=== PATIENT | male | born 1930 | race Caucasian/White ===

== ENCOUNTER 2018-03-04 00:20 | Observation (INO) | payer MEDICARE, BC ==
--- NOTE | 2018-03-04 00:52 | ED ---
General Adult HPI - General Chief complaint: Urogenital Stated complaint: UTI Time Seen by Provider: 03/04/18 00:51 Source: patient, EMS Mode of arrival: EMS Limitations: no limitations - History of Present Illness Initial comments: Duane is an 87-year-old male who presents to the ED via EMS from an outside hospital for further evaluation of hematuria, urinary tract infection and acute kidney injury. 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 He does admit to participating in some heavy physical activity including digging and moving a woodpile. He reports that after doing this he had the urge to urinate when he when he had difficulty urinating. When he was finally able to urinate he passed a very large dark blood clots. Patient states that this had never happened to him before. He states that he passed multiple blood clots and was able to into his bladder. He called his daughter who advised him to go to the ER. He sought care at an outside ER where urinalysis revealed gross hematuria, significant white blood cells as well as nitrites. He is also noted have a creatinine of 1.4 with no history of kidney disease. She was given IV fluids, Levaquin and transferred here for further evaluation by urology. Patient reports that aside from feeling hungry because he had supper he has no complaints. He does report that he continues to have dark blood and clots when he urinates but no dysuria or urinary frequency. Patient does state that he had a procedure for enlarged prostate greater than 30 years ago by a urologist in [facility]. He has subsequently followed with Dr. Jeter urology here. - Related Data Allergies Allergy/AdvReac Type Severity Reaction Status Date / Time atenolol Allergy Rash/Hives Verified 03/04/18 00:36 Influenza Virus Vaccines Allergy Rash/Hives Verified 03/04/18 00:36 Penicillins Allergy Rash/Hives Verified 03/04/18 00:36 Review of Systems ROS Statement: Those systems with pertinent positive or pertinent negative responses have been documented in the HPI. ROS Other: All systems not noted in ROS Statement are negative. Past Medical History Past Medical History: Heart Failure, Hyperlipidemia, Hypertension, Prostate Disorder Additional Past Medical History / Comment(s): vacular disease, cardiac disease, History of Any Multi-Drug Resistant Organisms: None Reported Additional Past Surgical History / Comment(s): left side neurostimulator, coronary angioplasty and graft Past Psychological History: No Psychological Hx Reported Smoking Status: Never smoker Past Alcohol Use History: None Reported Past Drug Use History: None Reported General Exam Limitations: no limitations General appearance: alert, in no apparent distress Head exam: Present: atraumatic, normocephalic Eye exam: Present: normal appearance, PERRL ENT exam: Present: normal exam Neck exam: Present: normal inspection Respiratory exam: Absent: respiratory distress Cardiovascular Exam: Present: regular rate GI/Abdominal exam: Present: soft. Absent: distended Rectal exam: Present: deferred Extremities exam: Present: normal inspection Back exam: Present: normal inspection Neurological exam: Present: alert, oriented X3 Psychiatric exam: Present: normal affect, normal mood Skin exam: Present: warm, dry. Absent: pallor Course Vital Signs 03/04/18 03/04/18 00:20 02:11 Temperature 97 F L Pulse Rate 60 72 Respiratory 18 18 Rate Blood Pressure 185/86 177/84 O2 Sat by Pulse 98 97 Oximetry Medical Decision Making - Medical Decision Making Patient care was discussed with Dr. Zepeda the transferring physician, this is an elderly gentleman who lives alone who developed gross hematuria, was noted to have a urinary tract infection and acute kidney injury. Made to transfer him to our facility to be evaluated by urology. Patient stable upon arrival. No complaints. Repeat CBC, BMP, urinalysis and urine culture were ordered. The patient did receive Levaquin prior to transfer however decision was made to obtain a urine culture regardless THE stable hemoglobin, creatinine improving with IV fluids urinalysis with persistent gross hematuria Patient care was discussed with urology who recommends patient be admitted to medicine under observation with consult to urology. Patient care was discussed with Dr. Acosta who accepts the patient to observation with consult to urology. - Lab Data Result diagrams: 03/04/18 02:04 03/04/18 02:04 Lab Results 03/04/18 03/04/18 03/04/18 Range/Units 02:04 02:04 02:04 WBC 4.9 (3.8-10.6) k/uL RBC 4.30 (4.30-5.90) m/uL Hgb 13.0 (13.0-17.5) gm/dL Hct 39.8 (39.0-53.0) % MCV 92.7 (80.0-100.0) fL MCH 30.2 (25.0-35.0) pg MCHC 32.5 (31.0-37.0) g/dL RDW 13.9 (11.5-15.5) % Plt Count 166 (150-450) k/uL Neutrophils % 60 % Lymphocytes % 23 % Monocytes % 11 % Eosinophils % 2 % Basophils % 1 % Neutrophils # 3.0 (1.3-7.7) k/uL Lymphocytes # 1.1 (1.0-4.8) k/uL Monocytes # 0.5 (0-1.0) k/uL Eosinophils # 0.1 (0-0.7) k/uL Basophils # 0.0 (0-0.2) k/uL Sodium 137 (137-145) mmol/L Potassium 3.8 (3.5-5.1) mmol/L Chloride 106 (98-107) mmol/L Carbon Dioxide 25 (22-30) mmol/L Anion Gap 6 mmol/L BUN 20 (9-20) mg/dL Creatinine 1.20 (0.66-1.25) mg/dL Est GFR (CKD-EPI)AfAm 63 (>60 ml/min/1.73 sqM) Est GFR (CKD-EPI)NonAf 54 (>60 ml/min/1.73 sqM) Glucose 93 (74-99) mg/dL Calcium 8.9 (8.4-10.2) mg/dL Urine Color Urine Appearance (Clear) Urine RBC (0-5) /hpf Urine WBC (0-5) /hpf Blood Type A Positive Blood Type Confirm Blood Type Recheck CABO Indicated Antibody Screen NEGATIVE Spec Expiration Date 03/07/2018230303/04/18 03/04/18 Range/Units 02:10 02:43 WBC (3.8-10.6) k/uL RBC (4.30-5.90) m/uL Hgb (13.0-17.5) gm/dL Hct (39.0-53.0) % MCV (80.0-100.0) fL MCH (25.0-35.0) pg MCHC (31.0-37.0) g/dL RDW (11.5-15.5) % Plt Count (150-450) k/uL Neutrophils % % Lymphocytes % % Monocytes % % Eosinophils % % Basophils % % Neutrophils # (1.3-7.7) k/uL Lymphocytes # (1.0-4.8) k/uL Monocytes # (0-1.0) k/uL Eosinophils # (0-0.7) k/uL Basophils # (0-0.2) k/uL Sodium (137-145) mmol/L Potassium (3.5-5.1) mmol/L Chloride (98-107) mmol/L Carbon Dioxide (22-30) mmol/L Anion Gap mmol/L BUN (9-20) mg/dL Creatinine (0.66-1.25) mg/dL Est GFR (CKD-EPI)AfAm (>60 ml/min/1.73 sqM) Est GFR (CKD-EPI)NonAf (>60 ml/min/1.73 sqM) Glucose (74-99) mg/dL Calcium (8.4-10.2) mg/dL Urine Color Dark Red Urine Appearance Bloody (Clear) Urine RBC >182 H (0-5) /hpf Urine WBC >182 H (0-5) /hpf Blood Type Blood Type Confirm A Positive Blood Type Recheck Antibody Screen Spec Expiration Date Disposition Clinical Impression: UTI (urinary tract infection), Gross hematuria, Acute kidney injury Disposition: ADMITTED IP TO THIS [facility] Referrals: Rios Pierre MD [Primary Care Provider] - 1-2 days Decision Time: 03:24
[2018-03-04 02:18] LABS: Basophils % (A) 1 %; Eosinophils # (A) 0.1 k/uL (0-0.7); Eosinophils % (A) 2 %; HCT 39.8 % (39.0-53.0); Lymphocytes # (A) 1.1 k/uL (1.0-4.8); Lymphocytes % (A) 23 %; MCH 30.2 pg (25.0-35.0); MCHC 32.5 g/dL (31.0-37.0); MCV 92.7 fL (80.0-100.0); Mean Platelet Volume 7.6; Monocytes # (A) 0.5 k/uL (0-1.0); Monocytes % (A) 11 %; Neutrophils % (A) 60 %; Platelet Count 166 k/uL (150-450); RDW 13.9 % (11.5-15.5); WBC 4.9 k/uL (3.8-10.6)
[2018-03-04 02:21] LABS: Calcium 8.9 mg/dL (8.4-10.2)
[2018-03-04 02:23] LABS: RBC,Urine >182 /hpf (0-5); WBC,Urine >182 /hpf (0-5)
[2018-03-04 02:24] LABS: Appearance,Urine Bloody (Clear); Color,Urine Dark Red
[2018-03-04 02:25] LABS: Potassium 3.8 mmol/L (3.5-5.1)
[2018-03-04] MEDS ORDERED: NALOXONE 0.4 MG/ML 1 ML VIAL IV PRN (03:10)
[2018-03-04 04:20] VITALS: BMI 32.4
[2018-03-04] MEDS: SODIUM CHLORIDE 0.9% 1,000 ML IV SCH ×3 (04:48→19:37)
[2018-03-04] MEDS ORDERED: DOCUSATE 100 MG CAP PO PRN (12:10)
--- NOTE | 2018-03-04 13:17 | HP ---
HISTORY AND PHYSICAL CHIEF COMPLAINT: An 87-year-old with UTI and hematuria. HISTORY OF PRESENT ILLNESS: This 87-year-old white female came in from outside hospital due to severe hematuria, urinary tract infection, acute kidney injury. 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 He had urgency to urinary when he was doing this, difficulty to urinate, passed a large blood clot out of his penis, multiple blood clots from his urine at which time he came to the ER, He had gross hematuria. Significant white cells, nitrates. Creatinine 1.4. No history of kidney disease. He was given fluids, Levaquin, transferred here. He has got enlarged prostate 30 years ago. Seen a urologist in [place]. ALLERGIES: ATENOLOL, INFLUENZA, PENICILLIN. 14 POINT REVIEW OF SYSTEMS: Negative except for as mentioned in HPI. PAST MEDICAL HISTORY: Heart failure, dyslipidemia, hypertension, prostate disorder, cardiac disease, outside neurostimulator, coronary angioplasty and graft. SOCIAL HISTORY: Nonsmoker. No alcohol. No illicit drugs. PHYSICAL EXAM: Temp 97, pulse 60 to 73, respiratory 12 to 16 to18, blood pressure is 170 to 180s/80s, O2 is 97% - 98% on room air. CARDIOVASCULAR: S1, S2. LUNGS: Clear. GI: Soft. HEMATOLOGY: Negative Homans. PSYCH: Fair mood and affect. NEUROLOGIC: Alert and oriented x3. : No suprapubic tenderness. Follow his gross hematuria. Hemoglobin is 13, white count 4.9, sodium 137, potassium 3.8, BUN 20, creatinine 1.2. Red cells are greater than 182 in the urine, white cells are greater than 182 in the urine. CONCLUSION: 1. Since the urinary tract infection, gross hematuria, acute kidney injury. 2. History of heart disease. 3. Hypertension acceleration. Monitor electrolytes. Monitor signs of bleeding. Await for Infectious Disease and Urology. He will have a urine culture. Await recommendation. For further orders, please see chart. MMODL / IJN: [id number] /
[2018-03-04 14:01] LABS: Basophils % (A) 1 %; Eosinophils # (A) 0.1 k/uL (0-0.7); Eosinophils % (A) 2 %; HCT 38.9 % (39.0-53.0); HGB 12.7 gm/dL (13.0-17.5); Lymphocytes # (A) 0.8 k/uL (1.0-4.8); Lymphocytes % (A) 22 %; MCH 30.5 pg (25.0-35.0); MCHC 32.8 g/dL (31.0-37.0); MCV 93.1 fL (80.0-100.0); Mean Platelet Volume 7.6; Monocytes # (A) 0.3 k/uL (0-1.0); Monocytes % (A) 9 %; Neutrophils # (A) 2.2 k/uL (1.3-7.7); Neutrophils % (A) 63 %; Platelet Count 169 k/uL (150-450); RBC 4.17 m/uL (4.30-5.90); RDW 13.9 % (11.5-15.5); WBC 3.5 k/uL (3.8-10.6)
[2018-03-04] MEDS: cefTRIAXone IN SWFI 1,000 MG/10 ML SYRINGE IVP SCH (16:44)
[2018-03-04] MEDS ORDERED: ATORVASTATIN 10 MG TAB PO SCH (18:30)
--- NOTE | 2018-03-04 20:37 | P.GSCN ---
History of Present Illness Consult date: 03/04/18 Reason for Consult: Hematuria Requesting physician: Maico Acosta History of present illness: He is an 87-year-old male with a history of BPH. He was previously treated by Dr. Mccormick, and he underwent a TURP in the past. He has taken Proscar for several years, and states that it has helped his voiding significantly. He states that his PSA level was previously elevated to approximately 6, but it has normalized since he began taking Proscar. On examination, the prostate is enlarged but smooth. Bladder emptying is complete, and urinalysis is negative. When I last saw him in 2016, I suggested he continue to take Proscar and follow up as needed in the future. Yesterday, he was working outside, doing some shoveling and lifting, and he felt an urge to void. He passed 2 large clots, and subsequently experienced gross hematuria. He was evaluated at [facility] in [place]. A computed tomography scan of the abdomen and pelvis without contrast showed a 2 cm right lower pole renal cyst, but no other urologic abnormalities were noted. He was subsequently transferred to [facility] for admission. Review of Systems - Constitutional Denies chills, Denies fever - Gastrointestinal Denies nausea, Denies vomiting - Genitourinary Reports hematuria, Reports nocturia, Denies dysuria Past Medical History Past Medical History: Heart Failure, Hyperlipidemia, Hypertension, Prostate Disorder Additional Past Medical History / Comment(s): vacular disease, cardiac disease, History of Any Multi-Drug Resistant Organisms: None Reported Additional Past Surgical History / Comment(s): left side neurostimulator, coronary angioplasty and graft Past Psychological History: No Psychological Hx Reported Smoking Status: Never smoker Past Alcohol Use History: None Reported Past Drug Use History: None Reported Medications and Allergies Home Medications Medication Instructions Recorded Confirmed Type Aspirin 325 mg PO DAILY 03/04/18 03/04/18 History Clopidogrel [Plavix] 75 mg PO DAILY 03/04/18 03/04/18 History Docusate [Colace] 100 mg PO DAILY PRN 03/04/18 03/04/18 History Finasteride [Proscar] 5 mg PO DAILY 03/04/18 03/04/18 History Furosemide [Lasix] 20 mg PO DAILY 03/04/18 03/04/18 History Isosorbide Mononitrate ER [Imdur] 30 mg PO DAILY 03/04/18 03/04/18 History Metoprolol Tartrate 25 mg PO BID 03/04/18 03/04/18 History Polyethylene Glycol 3350 [Miralax] 17 gm PO DAILY 03/04/18 03/04/18 History Simvastatin [Zocor] 20 mg PO PC-SUPPER 03/04/18 03/04/18 History Allergies Allergy/AdvReac Type Severity Reaction Status Date / Time atenolol Allergy Rash/Hives Verified 03/04/18 08:44 Influenza Virus Vaccines Allergy Rash/Hives Verified 03/04/18 08:44 Penicillins Allergy Rash/Hives Verified 03/04/18 08:44 Surgical - Exam Vital Signs Temp Pulse Resp BP Pulse Ox 97 F L 60 18 185/86 98 03/04/18 00:20 03/04/18 00:20 03/04/18 00:20 03/04/18 00:20 03/04/18 00:20 - General well developed, well nourished, no distress - Respiratory normal respiratory effort - Abdomen Abdomen: soft, non tender, no guarding, no rigid, no rebound Hernia: none - Genitourinary normal penis with no external lesions, testicles non-tender - Rectum Rectum: normal sphincter tone, no masses, other (Prostate moderately enlarged but smooth) - Psychiatric oriented to time, oriented to person, oriented to place, speech is normal, memory intact Results - Labs 03/04/18 13:20 03/04/18 02:04 Abnormal Lab Results - Last 24 Hours (Table) 03/04/18 03/04/18 Range/Units 02:10 13:20 WBC 3.5 L (3.8-10.6) k/uL RBC 4.17 L (4.30-5.90) m/uL Hgb 12.7 L (13.0-17.5) gm/dL Hct 38.9 L (39.0-53.0) % Lymphocytes # 0.8 L (1.0-4.8) k/uL Urine RBC >182 H (0-5) /hpf Urine WBC >182 H (0-5) /hpf Microbiology - Last 24 Hours (Table) 03/04/18 02:10 Urine Culture - Preliminary Urine,Voided Diabetes panel 03/04/18 Range/Units 02:04 Sodium 137 (137-145) mmol/L Potassium 3.8 (3.5-5.1) mmol/L Chloride 106 (98-107) mmol/L Carbon Dioxide 25 (22-30) mmol/L BUN 20 (9-20) mg/dL Creatinine 1.20 (0.66-1.25) mg/dL Glucose 93 (74-99) mg/dL Calcium 8.9 (8.4-10.2) mg/dL Calcium panel 03/04/18 Range/Units 02:04 Calcium 8.9 (8.4-10.2) mg/dL Pituitary panel 03/04/18 Range/Units 02:04 Sodium 137 (137-145) mmol/L Potassium 3.8 (3.5-5.1) mmol/L Chloride 106 (98-107) mmol/L Carbon Dioxide 25 (22-30) mmol/L BUN 20 (9-20) mg/dL Creatinine 1.20 (0.66-1.25) mg/dL Glucose 93 (74-99) mg/dL Calcium 8.9 (8.4-10.2) mg/dL Adrenal panel 03/04/18 Range/Units 02:04 Sodium 137 (137-145) mmol/L Potassium 3.8 (3.5-5.1) mmol/L Chloride 106 (98-107) mmol/L Carbon Dioxide 25 (22-30) mmol/L BUN 20 (9-20) mg/dL Creatinine 1.20 (0.66-1.25) mg/dL Glucose 93 (74-99) mg/dL Calcium 8.9 (8.4-10.2) mg/dL - Imaging CT scan - abdomen: report reviewed Assessment and Plan (1) Gross hematuria Current Visit: Yes Status: Acute Code(s): R31.0 - GROSS HEMATURIA SNOMED Code(s): 660506310 Plan: In summary, Mr. Schofield is experiencing gross painless hematuria. The computed tomography scan showed no abnormalities. I suspect a lower urinary tract source of the hematuria. Urinalysis is suggestive of a possible infection. A urine culture was sent, and he is currently receiving Rocephin. The hematuria may be due to BPH, but intravesical malignancy must be excluded. I intend to reevaluate Mr. Schofield tomorrow morning. I will suggest that he undergo cystoscopy during this hospitalization if the hematuria persists, but if the hematuria subsides he may be discharged home and undergo office cystoscopy and the upcoming week. Time with Patient: Greater than 30
[2018-03-04] MEDS: METOPROLOL TARTRATE 25 MG TAB PO SCH (21:07)
[2018-03-04 21:26] LABS: Basophils % (A) 1 %; Eosinophils # (A) 0.1 k/uL (0-0.7); Eosinophils % (A) 2 %; HCT 40.5 % (39.0-53.0); HGB 13.6 gm/dL (13.0-17.5); Lymphocytes # (A) 1.1 k/uL (1.0-4.8); Lymphocytes % (A) 26 %; MCH 31.3 pg (25.0-35.0); MCHC 33.5 g/dL (31.0-37.0); MCV 93.5 fL (80.0-100.0); Mean Platelet Volume 7.6; Monocytes # (A) 0.4 k/uL (0-1.0); Monocytes % (A) 9 %; Neutrophils # (A) 2.4 k/uL (1.3-7.7); Neutrophils % (A) 59 %; Platelet Count 165 k/uL (150-450); RBC 4.33 m/uL (4.30-5.90); RDW 13.7 % (11.5-15.5); WBC 4.1 k/uL (3.8-10.6)
--- NOTE | 2018-03-05 01:41 | CONS ---
CONSULTATION DATE OF SERVICE: 03/04/2018 REASON FOR CONSULTATION: Urinary tract infection. HISTORY OF PRESENT ILLNESS: The patient is an 87-year-old male with a past medical history significant for benign prostate hypertrophy. The patient is status post prostatectomy and has been on Proscar. The patient has been in usual state of health until yesterday morning. Apparently the patient has been doing some more hard work outside including lifting and shoveling stuff around. The patient did notice that he had an urge to void and subsequently passed 2 large clots in the urine and since then the patient did have gross hematuria. The patient denies significant burning on urination or any suprapubic or flank pain. No nausea, no vomiting. With these symptoms, the patient did went to [facility]. The patient did have CT abdominal and pelvis completed without any contrast, which did show small cyst in the kidney, but no evidence of any stones. He did have mildly positive . He has mostly hematuria on urinalysis with some pyuria with concern for possible infection. Infectious Disease was consulted for further recommendation. The patient has been afebrile since he has been admitted to the hospital and his white count has been normal though urine did show more than 1-2 WBC. REVIEW OF SYSTEMS: Constitutional: Positive for weakness. Denies any high-grade fever. Eyes: No complaint. ENT no complaint. Respiratory no complaint. Cardiovascular no complaint. Genitourinary as per HPI. GI system: No complaint. Musculoskeletal no complaint. Integumentary: No complaint. Psychological no complaint. Endocrine no complaint. Neurologic: No complaint. PAST MEDICAL HISTORY: Significant for hypertension, hyperlipidemia, benign prostatic hypertrophy, and heart failure. PAST SURGICAL HISTORY: Left-sided neuro transmitter stimulator placement, coronary angioplasty with grafting. SOCIAL HISTORY: Denies smoking, drinking or drug use. FAMILY HISTORY: No pertinent findings noticed. ALLERGIES: PENICILLIN. He mentioned that he has got so much of penicillin that it may not work for him. Denies having any rash. Clinically doubt true penicillin allergy. ALSO ALLERGIES TO ATENOLOL AND INFLUENZA VACCINE. MEDICATIONS: Currently include the patient is on Lipitor, Colace, Proscar, Lasix, Imdur, Lopressor, Narcan and IV fluids, Plavix and aspirin has been put hold. EXAMINATION: Blood pressure is 121/60 with a pulse of 52, temperature 97.9. He is 97% on room air. General description is an elderly male lying in bed in no distress. No tachypnea or accessory muscles of respiration use. HEENT: Shows scleral icterus. Oral mucous membranes dry. No pharyngeal erythema or thrush. Neck trachea central. No thyromegaly. Lungs unlabored breathing. Clear to auscultation anteriorly. No wheeze or crackles. Heart S1, S2. Regular rate and rhythm. ABDOMEN: Soft, no tenderness. No guarding or rigidity. EXTREMITIES: No edema of the feet. Skin examination: No rash or mass palpable. Neurological: Patient is awake, alert, oriented times three. Mood and affect normal. LABS: Hemoglobin 13.6, white count 4.1 with a BUN of 20, creatinine 1.20. Urine with more than 1-2 WBCs. Cultures currently pending. DIAGNOSTIC IMPRESSION: Patient admitted to the hospital with gross hematuria with a question of possible noninfectious, however underlying urinary tract infection not entirely excluded in view of significant pyuria associated with it. The patient has been evaluated by urology and a cystoscopy has been recommended. PLAN: 1. The patient will be empirically started on Rocephin 1 g daily. 2. IV fluids. 3. Depending upon the clinical response as well as cultures we will adjust the medication further if needed. Thank you for this consultation. We will follow this patient along with you. MMODL / IJN: [id number] /
[2018-03-05] MEDS: SODIUM CHLORIDE 0.9% 1,000 ML IV SCH ×2 (05:21→12:34)
[2018-03-05 06:04] LABS: Basophils % (A) 1 %; Eosinophils # (A) 0.1 k/uL (0-0.7); Eosinophils % (A) 2 %; HCT 39.2 % (39.0-53.0); HGB 13.1 gm/dL (13.0-17.5); Lymphocytes # (A) 0.8 k/uL (1.0-4.8); Lymphocytes % (A) 22 %; MCH 31.4 pg (25.0-35.0); MCHC 33.5 g/dL (31.0-37.0); MCV 93.9 fL (80.0-100.0); Mean Platelet Volume 7.4; Monocytes # (A) 0.4 k/uL (0-1.0); Monocytes % (A) 10 %; Neutrophils # (A) 2.3 k/uL (1.3-7.7); Neutrophils % (A) 62 %; Platelet Count 167 k/uL (150-450); RBC 4.18 m/uL (4.30-5.90); RDW 13.9 % (11.5-15.5); WBC 3.8 k/uL (3.8-10.6)
[2018-03-05 06:15] VITALS: RESP 16; TEMP 97.8
[2018-03-05 06:19] LABS: Albumin 3.1 g/dL (3.5-5.0); Calcium 8.6 mg/dL (8.4-10.2); Potassium 4.1 mmol/L (3.5-5.1); Total Protein 5.8 g/dL (6.3-8.2)
[2018-03-05] MEDS ORDERED: FUROSEMIDE 20 MG TAB PO SCH (09:00)
[2018-03-05] MEDS ORDERED: ASPIRIN 325 MG TAB PO SCH (09:00)
[2018-03-05] MEDS ORDERED: FINASTERIDE 5 MG TAB PO SCH (09:00)
[2018-03-05] MEDS ORDERED: CLOPIDOGREL 75 MG TAB PO SCH (09:00)
[2018-03-05] MEDS ORDERED: ISOSORBIDE MONONITRATE ER 30 MG TAB.ER.24H PO SCH (09:00)
[2018-03-05] MEDS: METOPROLOL TARTRATE 25 MG TAB PO SCH (09:10)
[2018-03-05] MEDS: cefTRIAXone IN SWFI 1,000 MG/10 ML SYRINGE IVP SCH (09:11)
[2018-03-05] MEDS ORDERED: ACETAMINOPHEN TAB 325 MG TAB PO PRN (10:32)
[2018-03-05 10:48] VITALS: BP 151/65; PULSE 52
[2018-03-05 13:12] LABS: Basophils % (A) 1 %; Eosinophils # (A) 0.1 k/uL (0-0.7); Eosinophils % (A) 2 %; HCT 39.8 % (39.0-53.0); HGB 13.1 gm/dL (13.0-17.5); Lymphocytes # (A) 0.9 k/uL (1.0-4.8); Lymphocytes % (A) 23 %; MCH 30.8 pg (25.0-35.0); MCHC 32.8 g/dL (31.0-37.0); MCV 93.9 fL (80.0-100.0); Mean Platelet Volume 7.8; Monocytes # (A) 0.4 k/uL (0-1.0); Monocytes % (A) 9 %; Neutrophils # (A) 2.5 k/uL (1.3-7.7); Neutrophils % (A) 63 %; Platelet Count 195 k/uL (150-450); RBC 4.23 m/uL (4.30-5.90); RDW 13.9 % (11.5-15.5)
--- NOTE | 2018-03-05 14:33 | PN ---
PROGRESS NOTE DATE OF SERVICE: 03/05/2018 REASON FOR FOLLOWUP: Urinary tract infection. INTERVAL HISTORY: The patient is afebrile. The patient's hematuria has resolved. Did have a concentrated urine. The patient denies any burning or frequency. Denies any chest pain or shortness of breath. No abdominal pain. No diarrhea. EXAMINATION: Blood pressure 117/82 with a pulse of 95 temperature 97.8. He is 95% on room air. General description is an elderly male up in the chair in no distress. LABS: White count normal at 4.0 with a BUN of 18, creatinine 1.10. Urine culture currently pending. DIAGNOSTIC IMPRESSION AND PLAN: Patient admitted to the hospital with gross hematuria with concern for possible component of a urinary tract infection for which the patient is currently on Rocephin. Will continue while waiting for the culture to finalize. on hold per Urology. Continue supportive care. MMODL / IJN: [id number] /
--- NOTE | 2018-03-09 11:52 | P.PN ---
Progress Note - Text Progress Note Date: 03/05/18 Mr. Schofield is voiding without difficulty. The hematuria is improved. His hemoglobin level is stable at 13.1. I had a lengthy discussion with the patient and his daughter. I have recommended that he be discharged home on oral antibiotics. I have advised him to hold his aspirin and Plavix. I have also suggested that he avoid any straining or strenuous activity, and that he drink plenty of fluids. He will be contacted by my office on Wednesday, to be given an appointment to undergo office cystoscopy on 03/09/2018.
== END 2018-03-05 14:00 | disposition home or self-care (01) ==
LOC: EC 00:20 → 5MS5E 03:11
PROVIDERS: ADMIT Family Medicine; ATTEND Family Medicine
DX: N39.0 Urinary tract infection, site not specified (principal); N17.9 Acute kidney failure, unspecified; R31.0 Gross hematuria; N40.0 Benign prostatic hyperplasia without lower urinary tract symptoms; I11.0 Hypertensive heart disease with heart failure; I50.9 Heart failure, unspecified; E78.5 Hyperlipidemia, unspecified; I51.9 Heart disease, unspecified; N28.1 Cyst of kidney, acquired; Z79.82 Long term (current) use of aspirin; Z79.02 Long term (current) use of antithrombotics/antiplatelets; Z79.899 Other long term (current) drug therapy; Z95.5 Presence of coronary angioplasty implant and graft; Z96.9 Presence of functional implant, unspecified; Z88.0 Allergy status to penicillin; Z88.7 Allergy status to serum and vaccine; Z88.8 Allergy status to other drugs, medicaments and biological substances
CPT/HCPCS: 99285 ×2; 96376; 96361 ×2; 96374; 36415; 86900; 86901; 80053; 80048; 85025 ×2; 86850; 81001; 87086; G0378 ×2; S0138; J0696 ×2

== ENCOUNTER 2018-04-25 12:14 | Inpatient (IN) | payer MEDICARE, BC ==
[2018-04-25 12:46] LABS: Basophils % (A) 0 %; Eosinophils # (A) 0.1 k/uL (0-0.7); Eosinophils % (A) 1 %; HCT 42.8 % (39.0-53.0); HGB 14.5 gm/dL (13.0-17.5); Lymphocytes # (A) 0.7 k/uL (1.0-4.8); Lymphocytes % (A) 7 %; MCH 31.6 pg (25.0-35.0); Mean Platelet Volume 7.8; Monocytes # (A) 0.4 k/uL (0-1.0); Monocytes % (A) 5 %; Neutrophils # (A) 7.7 k/uL (1.3-7.7); Neutrophils % (A) 85 %; Platelet Count 169 k/uL (150-450); RDW 13.4 % (11.5-15.5); WBC 9.1 k/uL (3.8-10.6)
[2018-04-25 12:57] LABS: Albumin 3.5 g/dL (3.5-5.0); Calcium 8.6 mg/dL (8.4-10.2); INR 1.1 (<1.2); Magnesium 2.2 mg/dL (1.6-2.3); Partial Thromboplastin Time 23.8 sec (22.0-30.0); Potassium 3.4 mmol/L (3.5-5.1); Prothrombin Time 10.6 sec (9.0-12.0); Total Protein 6.8 g/dL (6.3-8.2)
--- NOTE | 2018-04-25 13:20 | XR ---
EXAMINATION TYPE: XR chest 2V DATE OF EXAM: 04/25/2018 COMPARISON: 04/25/2018 TECHNIQUE: PA and lateral views submitted. HISTORY: Difficulty breathing FINDINGS: Arthropathy of the shoulders. Reduced inspiration with bilateral lower lobe consolidation. No pneumot horax. Atherosclerotic change aorta. Hypertrophic and degenerative change of the spine. Appears to be a spinal stimulator catheter or device correlate clinically. IMPRESSION: 1. Bilateral lower lobe infiltrate or atelectasis.
[2018-04-25 13:36] LABS: Troponin I 0.199 ng/mL (0.000-0.034)
--- NOTE | 2018-04-25 14:36 | ED ---
General Adult HPI - General Chief complaint: Weakness Stated complaint: sob/chest pain Time Seen by Provider: 04/25/18 12:17 Source: patient, EMS, RN notes reviewed, old records reviewed Mode of arrival: EMS Limitations: physical limitation - History of Present Illness Initial comments: This is an 87-year-old male except in transfer. Patient was transferred patient for evaluation regarding 9 STEMI. Patient is not complaining of any chest pain currently. Patient does have medical history of high blood pressure high cholesterol heart failure - Related Data Home Medications Medication Instructions Recorded Confirmed Finasteride [Proscar] 5 mg PO DAILY 03/04/18 04/25/18 Isosorbide Mononitrate ER [Imdur] 30 mg PO DAILY 03/04/18 04/25/18 Metoprolol Tartrate 25 mg PO BID 03/04/18 04/25/18 Polyethylene Glycol 3350 [Miralax] 17 gm PO DAILY 03/04/18 04/25/18 Bisacodyl 5 mg PO DAILY PRN 04/25/18 04/25/18 Ferrous Sulfate [Iron (65 MG 325 mg PO DAILY 04/25/18 04/25/18 Elemental)] Previous Rx's Medication Instructions Recorded Acetaminophen Tab [Tylenol] 650 mg PO Q6HR PRN tab 04/28/18 Aspirin 81 mg PO DAILY chew 04/28/18 Atorvastatin [Lipitor] 40 mg PO DAILY tab 04/28/18 Levofloxacin [Levaquin] 750 mg PO DAILY #5 tab 04/28/18 Allergies Allergy/AdvReac Type Severity Reaction Status Date / Time atenolol Allergy Rash/Hives Verified 04/25/18 12:46 Influenza Virus Vaccines Allergy Rash/Hives Verified 04/25/18 12:46 Penicillins Allergy Rash/Hives Verified 04/25/18 12:46 ferrous sulfate AdvReac Nausea & Verified 04/25/18 12:46 Vomiting & Diarrhea Review of Systems ROS Statement: Those systems with pertinent positive or pertinent negative responses have been documented in the HPI. ROS Other: All systems not noted in ROS Statement are negative. Past Medical History Past Medical History: Heart Failure, Hyperlipidemia, Hypertension, Prostate Disorder Additional Past Medical History / Comment(s): vacular disease, cardiac disease, History of Any Multi-Drug Resistant Organisms: None Reported Additional Past Surgical History / Comment(s): left side neurostimulator, coronary angioplasty and graft Past Psychological History: No Psychological Hx Reported Smoking Status: Never smoker Past Alcohol Use History: None Reported Past Drug Use History: None Reported - Past Family History Mother Additional Family Medical History / Comment(s): in 1940-during child Father Family Medical History: Myocardial Infarction ([place]) Additional Family Medical History / Comment(s): age 86 from [place] General Exam Limitations: physical limitation General appearance: alert, in no apparent distress Head exam: Present: atraumatic, normocephalic, normal inspection Eye exam: Present: normal appearance, PERRL, EOMI. Absent: scleral icterus, conjunctival injection, periorbital swelling ENT exam: Present: normal exam, mucous membranes moist Neck exam: Present: normal inspection. Absent: tenderness, meningismus, lymphadenopathy Respiratory exam: Present: normal lung sounds bilaterally. Absent: respiratory distress, wheezes, rales, rhonchi, stridor Cardiovascular Exam: Present: regular rate, normal rhythm, normal heart sounds. Absent: systolic murmur, diastolic murmur, rubs, gallop, clicks GI/Abdominal exam: Present: soft, normal bowel sounds. Absent: distended, tenderness, guarding, rebound, rigid Extremities exam: Present: normal inspection, full ROM, normal capillary refill. Absent: tenderness, pedal edema, joint swelling, calf tenderness Back exam: Present: normal inspection Neurological exam: Present: alert, oriented X3, CN II-XII intact Psychiatric exam: Present: normal affect, normal mood Skin exam: Present: warm, dry, intact, normal color. Absent: rash Course Vital Signs 04/25/18 04/25/18 04/25/18 12:24 13:26 13:37 Temperature 98.5 F Pulse Rate 83 62 Respiratory 18 18 20 Rate Blood Pressure 142/73 131/69 O2 Sat by Pulse 99 98 Oximetry 04/25/18 04/25/18 16:00 17:02 Temperature 97.9 F Pulse Rate 75 Respiratory 20 18 Rate Blood Pressure 171/90 O2 Sat by Pulse 97 Oximetry - Reevaluation(s) Reevaluation #1: Transfer paperwork is reviewed EKG Findings - EKG Comments: EKG Findings:: EKG shows normal sinus rhythm rate of 65, WV 178, QRS 136, QTC 538 Medical Decision Making - Medical Decision Making 87 male the ER for evaluation chest pain non-STEMI CHF. Patient be admitted for cardiology evaluation and rehydration secondary to rhabdomyolysis well. - Lab Data Result diagrams: 04/28/18 08:25 04/28/18 08:25 Lab Results 04/25/18 04/25/18 04/25/18 Range/Units 12:32 12:32 12:32 WBC 9.1 (3.8-10.6) k/uL RBC 4.60 (4.30-5.90) m/uL Hgb 14.5 (13.0-17.5) gm/dL Hct 42.8 (39.0-53.0) % MCV 93.0 (80.0-100.0) fL MCH 31.6 (25.0-35.0) pg MCHC 34.0 (31.0-37.0) g/dL RDW 13.4 (11.5-15.5) % Plt Count 169 (150-450) k/uL Neutrophils % 85 % Lymphocytes % 7 % Monocytes % 5 % Eosinophils % 1 % Basophils % 0 % Neutrophils # 7.7 (1.3-7.7) k/uL Lymphocytes # 0.7 L (1.0-4.8) k/uL Monocytes # 0.4 (0-1.0) k/uL Eosinophils # 0.1 (0-0.7) k/uL Basophils # 0.0 (0-0.2) k/uL PT (9.0-12.0) sec INR (<1.2) APTT (22.0-30.0) sec Sodium 137 (137-145) mmol/L Potassium 3.4 L (3.5-5.1) mmol/L Chloride 104 (98-107) mmol/L Carbon Dioxide 23 (22-30) mmol/L Anion Gap 10 mmol/L BUN 37 H (9-20) mg/dL Creatinine 1.52 H (0.66-1.25) mg/dL Est GFR (CKD-EPI)AfAm 47 (>60 ml/min/1.73 sqM) Est GFR (CKD-EPI)NonAf 41 (>60 ml/min/1.73 sqM) Glucose 114 H (74-99) mg/dL Calcium 8.6 (8.4-10.2) mg/dL Magnesium 2.2 (1.6-2.3) mg/dL Total Bilirubin 3.0 H (0.2-1.3) mg/dL AST 248 H (17-59) U/L ALT 88 H (21-72) U/L Alkaline Phosphatase 75 (38-126) U/L Total Creatine Kinase 5328 H* (55-170) U/L CK-MB (CK-2) 7.0 H (0.0-2.4) ng/mL CK-MB (CK-2) Rel Index Troponin I 0.199 H* (0.000-0.034) ng/mL NT-Pro-B Natriuret Pep pg/mL Total Protein 6.8 (6.3-8.2) g/dL Albumin 3.5 (3.5-5.0) g/dL 04/25/18 04/25/18 Range/Units 12:32 12:32 WBC (3.8-10.6) k/uL RBC (4.30-5.90) m/uL Hgb (13.0-17.5) gm/dL Hct (39.0-53.0) % MCV (80.0-100.0) fL MCH (25.0-35.0) pg MCHC (31.0-37.0) g/dL RDW (11.5-15.5) % Plt Count (150-450) k/uL Neutrophils % % Lymphocytes % % Monocytes % % Eosinophils % % Basophils % % Neutrophils # (1.3-7.7) k/uL Lymphocytes # (1.0-4.8) k/uL Monocytes # (0-1.0) k/uL Eosinophils # (0-0.7) k/uL Basophils # (0-0.2) k/uL PT 10.6 (9.0-12.0) sec INR 1.1 (<1.2) APTT 23.8 (22.0-30.0) sec Sodium (137-145) mmol/L Potassium (3.5-5.1) mmol/L Chloride (98-107) mmol/L Carbon Dioxide (22-30) mmol/L Anion Gap mmol/L BUN (9-20) mg/dL Creatinine (0.66-1.25) mg/dL Est GFR (CKD-EPI)AfAm (>60 ml/min/1.73 sqM) Est GFR (CKD-EPI)NonAf (>60 ml/min/1.73 sqM) Glucose (74-99) mg/dL Calcium (8.4-10.2) mg/dL Magnesium (1.6-2.3) mg/dL Total Bilirubin (0.2-1.3) mg/dL AST (17-59) U/L ALT (21-72) U/L Alkaline Phosphatase (38-126) U/L Total Creatine Kinase (55-170) U/L CK-MB (CK-2) (0.0-2.4) ng/mL CK-MB (CK-2) Rel Index Troponin I (0.000-0.034) ng/mL NT-Pro-B Natriuret Pep 1760 pg/mL Total Protein (6.3-8.2) g/dL Albumin (3.5-5.0) g/dL Critical Care Time Critical Care Time: Yes Total Critical Care Time: 31 Disposition Clinical Impression: NSTEMI (non-ST elevated myocardial infarction), Rhabdomyolysis Disposition: ADMITTED IP TO THIS HOSP Condition: Serious Is patient prescribed a controlled substance at d/c from ED?: No
[2018-04-25] MEDS ORDERED: SODIUM CHLORIDE 0.9% 500 ML IV ONE (16:28)
[2018-04-25] MEDS ORDERED: SODIUM CHLORIDE 0.9% 1,000 ML IV ONE (16:28)
[2018-04-25] MEDS ORDERED: SODIUM CHLORIDE 0.9% 1,000 ML IV SCH (16:30)
[2018-04-25] MEDS ORDERED: BISACODYL 5 MG TABLET.DR PO PRN (17:17)
[2018-04-25] MEDS ORDERED: ACETAMINOPHEN TAB 325 MG TAB PO PRN (17:19)
[2018-04-25] MEDS ORDERED: CALCIUM CARBONATE 500 MG CHEWABLE PO PRN (17:19)
[2018-04-25] MEDS ORDERED: ONDANSETRON 4 MG/2 ML VIAL IVP PRN (17:19)
[2018-04-25] MEDS ORDERED: LACTATED RINGERS 1,000 ML IV SCH (17:30)
[2018-04-25] MEDS ORDERED: ATORVASTATIN 10 MG TAB PO SCH (18:30)
[2018-04-25] MEDS: NITROGLYCERIN SL TABS 0.4 MG TAB SUBLINGUAL PRN ×2 (18:50→18:55)
[2018-04-25] MEDS ORDERED: HEPARIN SODIUM,PORCINE 5,000 UNIT/ML 1 ML VIAL IV PRN ×2 (20:13→20:42)
[2018-04-25] MEDS ORDERED: HEPARIN SODIUM,PORCINE 10,000 UNIT/ML 1 ML VIAL IV ONE (20:13)
[2018-04-25] MEDS ORDERED: HEPARIN SOD,PORK IN 0.45% NACL 25,000 UNIT in 0.45% NACL 1 500ML.BAG IV SCH (20:15)
[2018-04-25] MEDS ORDERED: HEPARIN SODIUM,PORCINE 5,000 UNIT/ML 1 ML VIAL IV ONE (20:42)
[2018-04-25 20:52] LABS: Creatine Kinase MB 6.1 ng/mL (0.0-2.4)
[2018-04-25] MEDS ORDERED: MELATONIN 3 MG TABLET PO PRN (21:00)
[2018-04-25 21:04] LABS: Basophils % (A) 0 %; Eosinophils % (A) 0 %; HCT 42.9 % (39.0-53.0); HGB 14.4 gm/dL (13.0-17.5); Lymphocytes # (A) 0.6 k/uL (1.0-4.8); Lymphocytes % (A) 7 %; MCH 31.5 pg (25.0-35.0); MCHC 33.6 g/dL (31.0-37.0); MCV 93.6 fL (80.0-100.0); Mean Platelet Volume 8.7; Monocytes # (A) 0.4 k/uL (0-1.0); Monocytes % (A) 5 %; Neutrophils # (A) 7.5 k/uL (1.3-7.7); Neutrophils % (A) 86 %; Platelet Count 170 k/uL (150-450); RBC 4.58 m/uL (4.30-5.90); RDW 13.4 % (11.5-15.5); WBC 8.7 k/uL (3.8-10.6)
[2018-04-25] MEDS: ATORVASTATIN 40 MG TAB PO SCH (21:09)
[2018-04-25] MEDS: METOPROLOL TARTRATE 25 MG TAB PO SCH (21:10)
[2018-04-25] MEDS: NITROGLYCERIN OINT 1 INCH/GM PACKET TOPICAL SCH (21:10)
[2018-04-25 21:11] LABS: Troponin I 0.155 ng/mL (0.000-0.034)
[2018-04-25] MEDS: guaiFENesin-DM 100-10MG/5ML 10 ML CUP PO PRN (21:12)
[2018-04-25 21:13] LABS: INR 1.1 (<1.2); Partial Thromboplastin Time 23.5 sec (22.0-30.0); Prothrombin Time 10.9 sec (9.0-12.0)
[2018-04-25] MEDS: HEPARIN SOD,PORK IN 0.45% NACL 25,000 UNIT in 0.45% NACL 1 500ML.BAG IV SCH (21:34)
[2018-04-25] MEDS: LACTATED RINGERS 1,000 ML IV SCH (21:34)
[2018-04-25] MEDS ORDERED: LEVOFLOXACIN 750MG-D5W PMX 750 MG in DEXTROSE/WATER 1 150ML.BAG IVPB SCH (22:00)
--- NOTE | 2018-04-25 22:58 | HP ---
HISTORY AND PHYSICAL DATE OF ADMISSION: 04/25/2018 PRESENTING COMPLAINT: Cough, sputum. HISTORY OF PRESENTING COMPLAINT: This is a very pleasant 87-year-old patient who follows with Dr. Pierre. Chronic stable medical conditions include coronary artery disease with stent in 2011, being followed by Dr. Agnes Tucker, hypertension, hyperlipidemia. At baseline patient uses a quad cane. Lives by himself. For the last about 5 days patient has been having increasing sputum, bringing up quite a bit, yellow-green in color. The patient was feeling tired and rundown. Every time he coughs he gets pain in the left anterior chest wall. Patient was getting so tired and rundown he decided to go down to [facility] earlier today. There patient's troponins were found to be 0.2. CPK was 2610 and patient was transferred down here. Earlier patient was put on IV heparin and nitro paste. Patient's daughter and niece are at the bedside. Patient's chest pain does not radiate to the neck or arm and is primarily related to coughing. Patient does feel tired and rundown. Denies any obvious fever or chills. REVIEW OF SYSTEMS: CONSTITUTIONAL: Weak and tired. HEENT: Left lazy eye from . RESPIRATORY: As above. CARDIOVASCULAR: Left anterior chest wall pain. Patient also has some edema in the lower extremities. GASTROINTESTINAL: None. GENITOURINARY: BPH symptoms. DERMATOLOGICAL: None. HEMATOLOGICAL: None. LYMPHATICS: None. PSYCHIATRY: Mainly forgetful. NEUROLOGICAL: Uses a quad cane. PAST MEDICAL HISTORY: 1. Congestive heart failure. 2. Hyperlipidemia. 3. Hypertension. 4. BPH. 5. Coronary artery disease. 6. Chronic low back pain from arthritis. PAST SURGICAL HISTORY: 1. Left-sided neurotransmitter. 2. Coronary angioplasty and graft. SOCIAL HISTORY: Used to work in a factory. No smoking. No alcohol. He is a . FAMILY HISTORY: Coronary artery disease. HOME MEDICATIONS: 1. Aspirin 162.5 mg a day. 2. Zocor 20 mg with supper. 3. Proscar 5 mg a day. 4. MiraLAX 17 grams p.o. daily. 5. Metoprolol 25 mg b.i.d. 6. Colace 100 mg daily p.r.n. 7. Dulcolax 5 mg daily p.r.n. 8. Lasix 20 mg p.o. daily. 9. Imdur ER 30 mg daily. 10.Iron 325 p.o. daily. ALLERGIES: 1. ATENOLOL. 2. INFLUENZA VIRUS VACCINE. 3. PENICILLIN. 4. FERROUS SULFATE. PHYSICAL EXAMINATION: VITAL SIGNS ON PRESENTATION: Temperature 98.5, pulse 83, respiration 18, blood pressure 142/73, pulse 99% on 2 L. GENERAL APPEARANCE: Well built, BMI 38.3. Lying in bed, tired-appearing. EYES: Left eye is lazy; otherwise, pupils are equal. HEENT: External appearance of nose and ears normal. Oral cavity dry. Decreased hearing. NECK: JVD not raised. Mass not palpable. RESPIRATORY: Effort normal. LUNGS: Diminished breath sounds. Questionable left basal crackles. CARDIOVASCULAR: First and second sounds normal. Minimal edema. ABDOMEN: Soft, nontender. Liver and spleen not palpable. LYMPHATIC: No lymph node palpable in neck or axillae. PSYCHIATRY: Alert and oriented x3. Mood and affect normal. NEUROLOGICAL: Pupils equal. Cranial nerves grossly intact. Power and sensation grossly intact. MUSCULOSKELETAL: Evidence of osteoarthritis, especially the hands and knees. INVESTIGATIONS: White count 9.1, hemoglobin 14.5, potassium 3.4, BUN 37, creatinine 1.52. Patient's BUN and creatinine were 18 and 1.1 on 03/05/2018. CPK 5328, troponin I 0.199. Chest x-ray film, personally reviewed by me, shows some basilar infiltrates. EKG tracing, personally reviewed by me, shows non-specific findings. ASSESSMENT: 1. Bilateral pneumonia; suspect gram-negative organism causing pleurisy-like symptoms responsible for his chest pain. Patient also has been bringing up productive sputum. 2. Acute renal failure, probably from decreased oral intake. Suspect prerenal. Creatinine has gone from 1.1 to 1.52 in a matter of a few days. 3. Coronary artery disease with prior history of stent and bypass. 4. Chronic congestive heart failure; ejection fraction not known. 5. Hyperlipidemia. 6. Essential hypertension. 7. Chronic left lazy eye. 8. Primary osteoarthritis. 9. Acute rhabdomyolysis in the setting of renal failure, not too significant. 10.Troponin leak. Doubt acute coronary syndrome, but still possible. 11.Benign prostatic hypertrophy. PLAN: At this point patient will be gently rehydrated. Home medications are reviewed. Patient will be put on IV ceftriaxone. Sputum is being sent off for Gram stain and culture. Any renal-offensive drugs will be held off, including Lasix. Will repeat electrolytes in the morning. Will also order a 2-D echocardiogram. Consultation is made to Cardiology. Care was discussed in detail with the patient and the 2 daughters at the bedside. CARLOS / DIRKN: [id number] /
[2018-04-26 01:12] LABS: Creatine Kinase MB 4.6 ng/mL (0.0-2.4)
[2018-04-26 01:18] LABS: Troponin I 0.13 ng/mL (0.000-0.034)
[2018-04-26 04:46] LABS: Basophils % (A) 0 %; Eosinophils % (A) 0 %; HCT 41.9 % (39.0-53.0); HGB 13.4 gm/dL (13.0-17.5); Lymphocytes # (A) 0.6 k/uL (1.0-4.8); Lymphocytes % (A) 8 %; MCH 30.5 pg (25.0-35.0); MCHC 32.1 g/dL (31.0-37.0); Mean Platelet Volume 7.4; Monocytes # (A) 0.5 k/uL (0-1.0); Monocytes % (A) 6 %; Neutrophils % (A) 83 %; Platelet Count 166 k/uL (150-450); RBC 4.41 m/uL (4.30-5.90); RDW 13.6 % (11.5-15.5); WBC 8.5 k/uL (3.8-10.6)
[2018-04-26 04:47] LABS: Calcium 8.6 mg/dL (8.4-10.2); Potassium 3.3 mmol/L (3.5-5.1)
[2018-04-26] MEDS: ASPIRIN 81 MG PO SCH (07:56)
[2018-04-26] MEDS: FINASTERIDE 5 MG TAB PO SCH (07:56)
[2018-04-26] MEDS: POLYETHYLENE GLYCOL 3350 17 GM POWD.PACK PO SCH (07:56)
[2018-04-26] MEDS: METOPROLOL TARTRATE 25 MG TAB PO SCH ×2 (07:56→19:55)
[2018-04-26] MEDS: ISOSORBIDE MONONITRATE ER 30 MG TAB.ER.24H PO SCH (08:01)
[2018-04-26] MEDS: NITROGLYCERIN OINT 1 INCH/GM PACKET TOPICAL SCH ×2 (08:01→19:55)
[2018-04-26] MEDS: ATORVASTATIN 40 MG TAB PO SCH (08:02)
[2018-04-26] MEDS ORDERED: ASPIRIN 325 MG TAB PO SCH (09:00)
--- NOTE | 2018-04-26 13:21 | P.CRDCN ---
History of Present Illness Consult date: 04/26/18 Requesting physician: Calixto Mendez Consult reason: chest pain Chief complaint: Chest pain ,productive cough, fatigue History of present illness: This is an 87-year-old patient with known history of coronary artery disease and prior PCI, hypertension, hyperlipidemia, presented to the hospital mainly with symptoms of malaise and fatigue, he has been having productive cough of yellow to green sputum, mild chills. According to the patient whenever he takes a deep cough he gets pain in his chest, he came to the emergency room for further evaluation. Chest x-ray on arrival here showed bilateral lower lobe infiltrate or atelectasis. EKG shows normal sinus rhythm with a right bundle branch block pattern and nonspecific ST-T wave changes. Blood pressure 130/70 with a heart rate in the 60s, 98% on 2 L of oxygen. White blood cell count 8.5 , hemoglobin 13.4, platelet count 166. Sodium 135, potassium 3.3, BUN 35, creatinine 1.4. Troponins 0.19, 0.15, 0.13. BNP level 1760. Patient is currently on aspirin 81 mg daily, Lipitor 40 mg daily, IV heparin, and her 30 mg daily, metoprolol, and Nitropaste. Currently not having any chest pain. Continues to have productive cough. Past Medical History Past Medical History: Heart Failure, Hyperlipidemia, Hypertension, Prostate Disorder Additional Past Medical History / Comment(s): vacular disease, cardiac disease, History of Any Multi-Drug Resistant Organisms: None Reported Additional Past Surgical History / Comment(s): left side neurostimulator, coronary angioplasty and graft Past Anesthesia/Blood Transfusion Reactions: No Reported Reaction Past Psychological History: No Psychological Hx Reported Smoking Status: Never smoker Past Alcohol Use History: None Reported Past Drug Use History: None Reported - Past Family History Mother Additional Family Medical History / Comment(s): in 1940-during child Father Family Medical History: Myocardial Infarction ([place]) Additional Family Medical History / Comment(s): age 86 from [place] Medications and Allergies Home Medications Medication Instructions Recorded Confirmed Type Aspirin 162.5 mg PO DAILY 03/04/18 04/25/18 History Docusate [Colace] 100 mg PO DAILY PRN 03/04/18 04/25/18 History Finasteride [Proscar] 5 mg PO DAILY 03/04/18 04/25/18 History Isosorbide Mononitrate ER [Imdur] 30 mg PO DAILY 03/04/18 04/25/18 History Metoprolol Tartrate 25 mg PO BID 03/04/18 04/25/18 History Polyethylene Glycol 3350 [Miralax] 17 gm PO DAILY 03/04/18 04/25/18 History Simvastatin [Zocor] 20 mg PO PC-SUPPER 03/04/18 04/25/18 History Bisacodyl 5 mg PO DAILY PRN 04/25/18 04/25/18 History Ferrous Sulfate [Feosol] 325 mg PO DAILY 04/25/18 04/25/18 History Furosemide [Lasix] 20 mg PO DAILY 04/25/18 04/25/18 History Allergies Allergy/AdvReac Type Severity Reaction Status Date / Time atenolol Allergy Rash/Hives Verified 04/25/18 12:46 Influenza Virus Vaccines Allergy Rash/Hives Verified 04/25/18 12:46 Penicillins Allergy Rash/Hives Verified 04/25/18 12:46 ferrous sulfate AdvReac Nausea & Verified 04/25/18 12:46 Vomiting & Diarrhea Physical Exam Vitals: Vital Signs Temp Pulse Pulse Resp BP BP Pulse Ox 04/26/18 11:21 63 16 04/26/18 11:00 63 16 125/75 92 L 04/26/18 08:00 65 18 04/26/18 07:51 97.4 F L 65 18 124/63 95 04/26/18 03:57 74 18 04/26/18 03:56 97.6 F 74 18 131/66 95 04/26/18 00:00 98.1 F 83 18 134/70 98 04/25/18 20:00 98.3 F 83 18 137/72 96 04/25/18 19:03 16 98/52 94 L 04/25/18 18:15 95 16 139/90 94 L 04/25/18 17:02 97.9 F 75 18 171/90 97 04/25/18 16:00 20 04/25/18 13:37 62 20 131/69 98 04/25/18 13:26 18 04/25/18 12:24 98.5 F 83 18 142/73 99 Intake and Output 04/25/18 04/26/18 04/26/18 22:59 06:59 14:59 Intake Total 837.667 Balance 837.667 Intake: Intake, IV Titration 837.667 Amount Heparin Sod,Pork in 0.45% 312.667 NaCl 25,000 unit In 0.45 % NaCl 1 500ml.bag @ 20 mls/hr IV .Q24H STEPHANIE Rx#: [id number] Lactated Ringers 1,000 ml 375 @ 75 mls/hr IV .[id number] STEPHANIE Rx#:[id number] Levofloxacin 750Mg-D5w 150 Pmx 750 mg In Dextrose/ Water 1 150ml.bag @ 100 mls/hr IVPB Q24H STEPHANIE Rx#: [id number] Other: Voiding Method Urinal Urinal Weight 100.4 kg PHYSICAL EXAMINATION: GENERAL: 87-year-old gentleman in no acute distress at the time of my examination HEENT: Head is atraumatic, normocephalic. Pupils equal, round. Sclera anicteric. Conjunctiva are clear. Mucous membranes of the mouth are moist. Neck is supple. There is no elevated jugular venous pressure. No carotid bruit is heard. HEART EXAMINATION: Heart S1 and S2 1 systolic murmur is heard. CHEST EXAMINATION: Lungs are clear with mild diminished air entry to the bases. ABDOMEN: Soft, nontender. Bowel sounds are heard. No organomegaly noted. EXTREMITIES: 2+ peripheral pulses with no evidence of peripheral edema and no calf tenderness noted. NEUROLOGIC patient is awake, alert and oriented X3. . Results 04/26/18 04:03 04/26/18 04:03 Cardiac Enzymes 04/25/18 04/25/18 04/25/18 Range/Units 12:32 12:32 19:19 AST 248 H (17-59) U/L CK-MB (CK-2) 7.0 H 6.1 H (0.0-2.4) ng/mL Troponin I 0.199 H* 0.155 H* (0.000-0.034) ng/mL 04/26/18 Range/Units 00:20 AST (17-59) U/L CK-MB (CK-2) 4.6 H (0.0-2.4) ng/mL Troponin I 0.130 H* (0.000-0.034) ng/mL Coagulation 0904/25/18 04/26/18 Range/Units 12:32 20:48 04:03 PT 10.6 10.9 (9.0-12.0) sec APTT 23.8 23.5 37.8 H (22.0-30.0) sec Lipids 04/26/18 Range/Units 04:03 Triglycerides 65 (<150) mg/dL Cholesterol 98 (<200) mg/dL HDL Cholesterol 30 L (40-60) mg/dL CBC 04/25/18 04/25/18 04/26/18 Range/Units 12:32 20:48 04:03 WBC 9.1 8.7 8.5 (3.8-10.6) k/uL RBC 4.60 4.58 4.41 (4.30-5.90) m/uL Hgb 14.5 14.4 13.4 (13.0-17.5) gm/dL Hct 42.8 42.9 41.9 (39.0-53.0) % Plt Count 169 170 166 (150-450) k/uL Comprehensive Metabolic Panel 04/25/18 04/26/18 Range/Units 12:32 04:03 Sodium 137 135 L (137-145) mmol/L Potassium 3.4 L 3.3 L (3.5-5.1) mmol/L Chloride 104 102 (98-107) mmol/L Carbon Dioxide 23 24 (22-30) mmol/L BUN 37 H 35 H (9-20) mg/dL Creatinine 1.52 H 1.45 H (0.66-1.25) mg/dL Glucose 114 H 116 H (74-99) mg/dL Calcium 8.6 8.6 (8.4-10.2) mg/dL AST 248 H (17-59) U/L ALT 88 H (21-72) U/L Alkaline Phosphatase 75 (38-126) U/L Total Protein 6.8 (6.3-8.2) g/dL Albumin 3.5 (3.5-5.0) g/dL Current Medications Generic Name Dose Route Start Last Admin Trade Name Freq PRN Reason Stop Dose Admin Acetaminophen 650 mg 04/25/18 17:19 Tylenol Tab PO Q6HR PRN Mild Pain or Fever > 100.5 Aspirin 81 mg 04/26/18 09:00 04/26/18 07:56 Aspirin PO 81 mg DAILY STEPHANIE Administration Atorvastatin Calcium 40 mg 04/25/18 20:30 04/26/18 08:02 Lipitor PO 40 mg DAILY STEPHANIE Administration Bisacodyl 5 mg 04/25/18 17:17 Dulcolax PO DAILY PRN Constipation Calcium Carbonate/Glycine 1,000 mg 04/25/18 17:19 Tums PO Q4HR PRN Dyspepsia Finasteride 5 mg 04/26/18 09:00 04/26/18 07:56 Proscar PO 5 mg DAILY STEPHANIE Administration Guaifenesin/Dextromethorphan 10 ml 04/25/18 20:17 04/25/18 21:12 Robitussin Dm PO 10 ml Q8H PRN Administration Cough Heparin Sodium (Porcine) 0 unit 04/25/18 20:42 Heparin IV PER PROTOCOL PRN Low PTT Protocol Heparin Sodium/Sodium Chloride 500 mls @ 20 mls/hr 04/25/18 20:45 04/26/18 05 :12 25,000 unit/ Sodium Chloride IV 26.2 mls/hr .Q24H STEPHANIE 26.2 mls/hr Titration Protocol Lactated Ringer's 1,000 mls @ 75 mls/hr 04/25/18 21:15 04/25/18 21:34 Lactated Ringers IV 75 mls/hr .[id number] STEPHANIE Administration Levofloxacin 750 mg/ IV 150 mls @ 100 mls/hr 04/27/18 21:00 Solution IVPB Q48H STEPHANIE Isosorbide Mononitrate 30 mg 04/26/18 09:00 04/26/18 08:01 Imdur PO Not Given DAILY STEPHANIE Melatonin 3 mg 04/25/18 21:00 04/26/18 00:24 Melatonin PO 3 mg HS PRN Administration Insomnia Metoprolol Tartrate 25 mg 04/25/18 21:00 04/26/18 07:56 Lopressor PO 25 mg BID STEPHANIE Administration Nitroglycerin 1 inch 04/25/18 21:00 04/26/18 08:01 Nitro-Bid Oint TOPICAL 1 inch Q12HR STEPHANIE Administration Ondansetron HCl 4 mg 04/25/18 17:19 Zofran IVP Q8HR PRN Nausea And Vomiting Polyethylene Glycol 17 gm 04/26/18 09:00 04/26/18 07:56 Miralax PO Not Given DAILY STEPHANIE Intake and Output 04/25/18 04/26/18 04/26/18 22:59 06:59 14:59 Intake Total 837.667 Balance 837.667 Intake: Intake, IV Titration 837.667 Amount Heparin Sod,Pork in 0.45% 312.667 NaCl 25,000 unit In 0.45 % NaCl 1 500ml.bag @ 20 mls/hr IV .Q24H STEPHANIE Rx#: [id number] Lactated Ringers 1,000 ml 375 @ 75 mls/hr IV .[id number] STEPHANIE Rx#:[id number] Levofloxacin 750Mg-D5w 150 Pmx 750 mg In Dextrose/ Water 1 150ml.bag @ 100 mls/hr IVPB Q24H STEPHANIE Rx#: [id number] Other: Voiding Method Urinal Urinal Weight 100.4 kg 04/26/18 04:03 04/26/18 04:03 EKG Interpretations (text) EKG shows a normal sinus rhythm with right bundle branch block pattern and nonspecific ST-T wave changes. Assessment and Plan Plan: Assessment and plan #1 bilateral pneumonia #2 atypical chest pain, abnormality in troponin noted. Acute coronary syndrome. Likely secondary to supply and demand mismatch. #3 acute on chronic renal failure #4 coronary artery disease with prior stent placement of the diagonal in 2011 #5 hyperlipidemia #6 hypertension #7 rhabdomyolysis in the setting of renal failure #8 BPH Plan We will obtain an echocardiogram with Doppler study. We will also continue IV heparin for 24 hours, continue maximal medical therapy. DNP note has been reviewed, I agree with a documented findings and plan of care. Patient was seen and examined.
[2018-04-26] MEDS: LACTATED RINGERS 1,000 ML IV SCH (15:37)
--- NOTE | 2018-04-26 20:29 | PN ---
PROGRESS NOTE DATE OF SERVICE: April 26, 2018. PRESENTING COMPLAINT: Cough, sputum. INTERVAL HISTORY: This patient presents with pneumonia, acute renal failure, acute coronary syndrome was felt to be unlikely. The patient has also got a cough with some left-sided pleuritic chest pain. Overall doing a bit better. Lying in bed, tired. Did tolerate some diet. REVIEW OF SYSTEMS: Done for constitutional, cardiovascular, GI, pulmonary; relevant findings as above. CURRENT MEDICATIONS: Reviewed that include IV heparin, IV Levaquin. PHYSICAL EXAMINATION: VITAL SIGNS: Temperature 97.4, pulse 65, respiratory 18, blood pressure 120/63, pulse ox 95 percent on 2 L. GENERAL APPEARANCE: Lying in bed, awake. EYES: Pupils equal. Conjunctivae normal. Left eye is lazy. NECK: JVD not raised. Mass not palpable. RESPIRATORY: Effort normal. LUNGS: Diminished breath sounds. CARDIOVASCULAR: 1st and 2nd sounds normal. No edema. ABDOMEN: Soft, nontender. Liver and spleen not palpable. PSYCHIATRY: Alert and oriented x3. Mood and affect normal. INVESTIGATIONS: White count 8.5, hemoglobin 13.4, potassium 3.3, BUN 35, creatinine 1.45. ASSESSMENT: 1. Bilateral pneumonia suspect gram-negative organism causing pleurisy like symptoms responsible for left anterior chest wall pain. 2. Acute renal failure probably from decreased oral intake, felt to be prerenal, slow to respond. 3. Coronary artery disease with prior history of stent and bypass. 4. Chronic congestive heart failure, ejection fraction not known. 5. Hyperlipidemia. 6. Essential hypertension. 7. Left eye strabismus. 8. Primary osteoarthritis. 9. Acute rhabdomyolysis in the setting of renal failure. 10.Troponin leak, possibly hemodynamic mismatch, does not felt to be acute coronary syndrome. 11.Benign prostatic hypertrophy. PLAN: Continue with antibiotics. Continue to hydrate the patient. Repeat electrolytes in the morning. Pending 2D echocardiogram. Care was discussed with the patient. MMODL / IJN: [id number] /
[2018-04-27] MEDS: LACTATED RINGERS 1,000 ML IV SCH ×2 (01:55→11:19)
[2018-04-27] MEDS: HEPARIN SOD,PORK IN 0.45% NACL 25,000 UNIT in 0.45% NACL 1 500ML.BAG IV SCH ×2 (04:43→11:18)
[2018-04-27 06:22] LABS: Calcium 8.7 mg/dL (8.4-10.2); Potassium 3.2 mmol/L (3.5-5.1)
[2018-04-27 06:25] LABS: Basophils % (A) 0 %; Eosinophils % (A) 0 %; HCT 42.1 % (39.0-53.0); HGB 13.9 gm/dL (13.0-17.5); Lymphocytes # (A) 0.6 k/uL (1.0-4.8); Lymphocytes % (A) 7 %; MCH 31.2 pg (25.0-35.0); MCHC 33.1 g/dL (31.0-37.0); MCV 94.2 fL (80.0-100.0); Monocytes # (A) 0.6 k/uL (0-1.0); Monocytes % (A) 7 %; Neutrophils # (A) 7.7 k/uL (1.3-7.7); Neutrophils % (A) 83 %; Platelet Count 187 k/uL (150-450); RBC 4.46 m/uL (4.30-5.90); RDW 13.4 % (11.5-15.5); WBC 9.3 k/uL (3.8-10.6)
[2018-04-27] MEDS: METOPROLOL TARTRATE 25 MG TAB PO SCH ×2 (08:43→20:04)
[2018-04-27] MEDS: ATORVASTATIN 40 MG TAB PO SCH (08:44)
[2018-04-27] MEDS: POLYETHYLENE GLYCOL 3350 17 GM POWD.PACK PO SCH (08:44)
[2018-04-27] MEDS: FINASTERIDE 5 MG TAB PO SCH (08:44)
[2018-04-27] MEDS: ISOSORBIDE MONONITRATE ER 30 MG TAB.ER.24H PO SCH (08:44)
[2018-04-27] MEDS: NITROGLYCERIN OINT 1 INCH/GM PACKET TOPICAL SCH ×2 (08:44→20:04)
[2018-04-27] MEDS: ASPIRIN 81 MG PO SCH (08:50)
[2018-04-27] MEDS: guaiFENesin-DM 100-10MG/5ML 10 ML CUP PO PRN (12:14)
--- NOTE | 2018-04-27 14:33 | P.PN ---
Subjective Progress Note Date: 04/27/18 This is an 87-year-old patient with known history of coronary artery disease and prior PCI, hypertension, hyperlipidemia, presented to the hospital mainly with symptoms of malaise and fatigue, he has been having productive cough of yellow to green sputum, mild chills. According to the patient whenever he takes a deep cough he gets pain in his chest, he came to the emergency room for further evaluation. Chest x-ray on arrival here showed bilateral lower lobe infiltrate or atelectasis. EKG shows normal sinus rhythm with a right bundle branch block pattern and nonspecific ST-T wave changes. Blood pressure 130/70 with a heart rate in the 60s, 98% on 2 L of oxygen. White blood cell count 8.5 , hemoglobin 13.4, platelet count 166. Sodium 135, potassium 3.3, BUN 35, creatinine 1.4. Troponins 0.19, 0.15, 0.13. BNP level 1760. Patient is currently on aspirin 81 mg daily, Lipitor 40 mg daily, IV heparin, and her 30 mg daily, metoprolol, and Nitropaste. Currently not having any chest pain. Continues to have productive cough. 04/27/2018 Patient was seen and examined this morning sitting up in chair bedside, complaining of some pain in his left upper shoulder region and posterior shoulder region. He states that hot packs help. Admitted with bilateral pneumonia and atypical chest discomfort. Blood pressure this morning 120/70 with a heart rate in the 60s, 94% on room air. White blood cell count 9.3, hemoglobin 13.9, platelet count 187. Sodium 138, potassium 3.2, BUN 28, creatinine 1.3. Objective - Vital Signs Vital signs: Vital Signs Temp 97.4 F L 04/27/18 08:37 Pulse 64 04/27/18 11:24 Resp 18 04/27/18 11:24 BP 120/71 04/27/18 11:24 Pulse Ox 94 L 04/27/18 11:24 Intake & Output 04/26/18 04/27/18 04/27/18 18:59 06:59 18:59 Intake Total 1262.333 660 Output Total 550 525 220 Balance 712.333 -525 440 Weight 102.4 kg Intake: Intake, IV Titration 1022.333 300 Amount Heparin Sod,Pork in 0.45% 347.333 NaCl 25,000 unit In 0.45 % NaCl 1 500ml.bag @ 20 mls/hr IV .Q24H STEPHANIE Rx#: [id number] Lactated Ringers 1,000 ml 675 @ 100 mls/hr IV .Q10H STEPHANIE Rx#:[id number] Lactated Ringers 1,000 ml 300 @ 75 mls/hr IV .[id number] STEPHANIE Rx#:[id number] Oral 240 360 Output: Urine 550 525 220 Other: Voiding Method Urinal # Voids 1 2 # Bowel Movements 1 0 - Exam PHYSICAL EXAMINATION: GENERAL: 87-year-old gentleman in no acute distress at the time of my examination HEENT: Head is atraumatic, normocephalic. Pupils equal, round. Sclera anicteric. Conjunctiva are clear. Mucous membranes of the mouth are moist. Neck is supple. There is no elevated jugular venous pressure. No carotid bruit is heard. HEART EXAMINATION: Heart S1 and S2 1 systolic murmur is heard. CHEST EXAMINATION: Lungs are clear with mild diminished air entry to the bases. ABDOMEN: Soft, nontender. Bowel sounds are heard. No organomegaly noted. EXTREMITIES: 2+ peripheral pulses with no evidence of peripheral edema and no calf tenderness noted. NEUROLOGIC patient is awake, alert and oriented X3. - Labs CBC & Chem 7: 04/27/18 05:37 04/27/18 05:37 Labs: Abnormal Lab Results - Last 24 Hours (Table) 04/26/18 04/27/18 04/27/18 Range/Units 18:01 05:37 05:37 Lymphocytes # 0.6 L (1.0-4.8) k/uL APTT 50.2 H (22.0-30.0) sec Potassium 3.2 L (3.5-5.1) mmol/L BUN 28 H (9-20) mg/dL Creatinine 1.34 H (0.66-1.25) mg/dL Glucose 124 H (74-99) mg/dL 04/27/18 Range/Units 05:37 Lymphocytes # (1.0-4.8) k/uL APTT 54.2 H (22.0-30.0) sec Potassium (3.5-5.1) mmol/L BUN (9-20) mg/dL Creatinine (0.66-1.25) mg/dL Glucose (74-99) mg/dL Assessment and Plan Plan: Assessment and plan #1 bilateral pneumonia #2 atypical chest pain, abnormality in troponin noted not suggestive of acute coronary syndrome,likely secondary to supply and demand mismatch. #3 acute on chronic renal failure #4 coronary artery disease with prior stent placement of the diagonal in 2011 #5 hyperlipidemia #6 hypertension #7 rhabdomyolysis in the setting of renal failure #8 BPH Plan We will review echocardiogram with Doppler study. Discontinue IV heparin. Follow with you now on an as-needed basis only, please don't hesitate to call with any questions. DNP note has been reviewed, I agree with a documented findings and plan of care. Patient was seen and examined.
[2018-04-27] MEDS ORDERED: LEVOFLOXACIN 750MG-D5W PMX 750 MG in DEXTROSE/WATER 1 150ML.BAG IVPB SCH (21:00)
[2018-04-27] MEDS ORDERED: LEVOFLOXACIN 750 MG TAB PO SCH (21:00)
--- NOTE | 2018-04-27 22:54 | PN ---
PROGRESS NOTE DATE OF SERVICE: 04/27/2018 PRESENTING COMPLAINT: Cough. INTERVAL HISTORY: This patient presented with pneumonia, acute renal failure and pleuritic chest pain. Cough is much improved. Pleuritic chest pain is greatly improved. Appetite is getting better. Patient did walk in the hallway. Diet is improving. Cardiology has signed off. REVIEW OF SYSTEMS: Done for constitutional, cardiovascular, GI, pulmonary; relevant findings as above. CURRENT MEDICATIONS: Reviewed. They include IV fluid 75 mL/hour and p.o. Levaquin. PHYSICAL EXAMINATION: Temperature 99.3, pulse 81, respiration 18, blood pressure 135/70, pulse ox 94% on room air. GENERAL APPEARANCE: Sitting up on bed. More peppy. EYES: Pupils equal. Conjunctivae normal. Left eye is lazy. NECK: JVD not raised. Mass not palpable. RESPIRATORY: Effort normal. LUNGS: Decreased breath sounds. CARDIOVASCULAR: First and second sounds normal. No edema. ABDOMEN: Soft, non-tender. Liver and spleen not palpable. PSYCHIATRY: Awake. Answering questions. INVESTIGATIONS: White count 9.3, potassium 3.2, BUN 28, creatinine 1.34. ASSESSMENT: 1. Bilateral pneumonia. Suspect gram-negative organism causing pleuritic-like symptoms on the left chest wall, clinically improved. 2. Acute renal failure, probably from decreased oral intake, felt to be prerenal, improving slowly. 3. Coronary artery disease with prior history of stent and bypass. 4. Chronic congestive heart failure; ejection fraction not known. 5. Hyperlipidemia. 6. Essential hypertension. 7. Left eye strabismus. 8. Primary osteoarthritis. 9. Acute rhabdomyolysis in the setting of renal failure. 10.Troponin leak, felt to be hemodynamic mismatch. 11.Benign prostatic hypertrophy. PLAN: Will increase the IV fluids to 100 mL/hour. Clinically patient is slowly improving. Two-dimensional echocardiogram has been ordered. Cardiology has signed off the case. Care was discussed with the patient. MMODL / IJN: [id number] /
[2018-04-28] MEDS: LACTATED RINGERS 1,000 ML IV SCH ×3 (00:06→17:08)
[2018-04-28] MEDS: FINASTERIDE 5 MG TAB PO SCH (08:31)
[2018-04-28] MEDS: METOPROLOL TARTRATE 25 MG TAB PO SCH (08:31)
[2018-04-28] MEDS: ISOSORBIDE MONONITRATE ER 30 MG TAB.ER.24H PO SCH (08:31)
[2018-04-28] MEDS: ASPIRIN 81 MG PO SCH (08:31)
[2018-04-28] MEDS: POLYETHYLENE GLYCOL 3350 17 GM POWD.PACK PO SCH (08:33)
[2018-04-28] MEDS: ATORVASTATIN 40 MG TAB PO SCH (08:33)
--- NOTE | 2018-04-28 09:19 | XR ---
EXAMINATION TYPE: XR chest 2V DATE OF EXAM: 04/28/2018 COMPARISON: 04/25/2018 TECHNIQUE: PA and lateral views submitted. HISTORY: Pneumonia FINDINGS: Bilateral infiltrate and small effusion stable. Atherosclerotic change aorta. Arthropathy of the shou lders. Stimulator device noted. Hypertrophic and degenerative changes. Atherosclerotic change aorta. No overt failure or pneumothorax. IMPRESSION: 1. Bilateral infiltrate and small effusion stable.
[2018-04-28 09:32] LABS: Calcium 8.5 mg/dL (8.4-10.2); Potassium 3.5 mmol/L (3.5-5.1)
[2018-04-28 09:57] LABS: Basophils % (A) 0 %; Eosinophils # (A) 0.1 k/uL (0-0.7); Eosinophils % (A) 2 %; HCT 39.6 % (39.0-53.0); HGB 13.5 gm/dL (13.0-17.5); Lymphocytes # (A) 0.7 k/uL (1.0-4.8); Lymphocytes % (A) 12 %; MCH 32.2 pg (25.0-35.0); MCV 94.7 fL (80.0-100.0); Mean Platelet Volume 7.9; Monocytes # (A) 0.4 k/uL (0-1.0); Monocytes % (A) 7 %; Neutrophils # (A) 4.6 k/uL (1.3-7.7); Neutrophils % (A) 76 %; Platelet Count 219 k/uL (150-450); RBC 4.18 m/uL (4.30-5.90); RDW 13.3 % (11.5-15.5)
--- NOTE | 2018-04-28 10:20 | ECHOF ---
Referral Reason: MEASUREMENTS -------- HEIGHT: 165.1 cm WEIGHT: 102.1 kg BP: 145/68 IVSd: 1.5 cm (0.6 - 1.1) LVIDd: 3.3 cm (3.9 - 5.3) LVPWd: 1.5 cm (0.6 - 1.1) IVSs: 1.6 cm LVIDs: 1.9 cm LVPWs: 1.5 cm Ao Diam: 3.2 cm (2.0 - 3.7) AV Cusp: 1.9 cm (1.5 - 2.6) LA Diam: 4.0 cm (2.7 - 3.8) MV E Manuel: 0.44 m/s MV DecT: 215 ms MV A Manuel: 0.43 m/s MV E/A Ratio: 1.03 RAP: 5.00 mmHg RVSP: 11.77 mmHg FINDINGS -------- Sinus rhythm. This was a technically difficult study with suboptimal views. The left ventricular size is normal. There is moderate concentric left ventricular hypertrophy. O verall left ventricular systolic function is normal with, an EF between 55 - 60 %. The right ventricle is normal in size and function. The left atrium was not well visualized. The right atrium was not well visualized. Lumason used The aortic valve was not well visualized. There is trace mitral regurgitation. Trace tricuspid regurgitation present. The right ventricular systolic pressure, as measured by Dopp ler, is 11.77mmHg. Pulmonic valve appears structurally normal. The aortic root size is normal. CONCLUSIONS -------- 1. Sinus rhythm. 2. This was a technically difficult study with suboptimal views. 3. The left ventricular size is normal. 4. There is moderate concentric left ventricular hypertrophy. 5. Overall left ventricular systolic function is normal with, an EF between 55 - 60 %. 6. The right ventricle is normal in size and function. 7. The left atrium was not well visualized. 8. The right atrium was not well visualized. 9. Lumason used 10. The aortic valve was not well visualized. 11. There is trace mitral regurgitation. 12. Trace tricuspid regurgitation present. 13. The right ventricular systolic pressure, as measured by Doppler, is 11.77mmHg. 14. Pulmonic valve appears structurally normal. 15. The aortic root size is normal. KETTLE WORKER: Lisa Zambrano RDCS
[2018-04-28 13:33] VITALS: BP 125/61; PULSE 80; RESP 20; TEMP 99.6
[2018-04-28 17:14] LABS: Glucose,Whole Blood 133 mg/dL (75-99)
--- NOTE | 2018-04-28 17:49 | DS ---
DISCHARGE SUMMARY DATE OF ADMISSION: 04/25/2018 DATE OF DISCHARGE: 04/28/2018 FINAL DIAGNOSES: 1. Bilateral pneumonia. Suspect gram-negative organism, also causing pleurisy, present on admission. 2. Acute renal failure, likely prerenal, present on admission, resolved. 3. Coronary artery disease with prior history of stent and bypass. 4. Hypertensive heart disease. 5. Chronic congestive heart failure from diastolic dysfunction, ejection fraction 55% to 60%, from coronary artery disease. 6. Hyperlipidemia. 7. Essential hypertension. 8. Left eye strabismus. 9. Primary osteoarthritis. 10.Acute rhabdomyolysis, present on admission. 11.Troponin leak, felt to be from hemodynamic mismatch. 12.Benign prostatic hypertrophy. HOSPITAL COURSE: This patient presented with cough, bringing up sputum. Responded well to antibiotics. He had a troponin leak which was felt to be from hemodynamic mismatch. Pulmonary symptoms greatly improved. By the time of discharge, patient is tolerating a diet, up and about. He was afebrile. Today I talked at length with the patient's daughter. Questions were answered. Patient is going to rehab. On examination, temperature 99.6, pulse 80, respiration 20, blood pressure 125/61, pulse ox 96% on room air. LUNGS: Improved air entry. PSYCHIATRY: Alert and oriented x3. Patient's creatinine that was 1.5 on admission is down to 1.21. Two-D echo showed preserved LV function. CONSULTATION: Dr. Eduardo Juarez from Cardiology. DISCHARGE MEDICATIONS: 1. Proscar 5 mg a day. 2. Imdur ER 30 mg daily. 3. Metoprolol 25 mg b.i.d. 4. MiraLAX 17 grams p.o. daily. 5. Bisacodyl 5 mg p.o. daily p.r.n. 6. Iron 325 mg p.o. daily. 7. Tylenol 650 mg q.6 p.r.n. 8. Aspirin 81 mg a day. 9. Lipitor 40 mg a day. 10.Levaquin 750 mg a day for 5 days. DISPOSITION: [facility]. Follow up with Dr. Pierre. Follow up with his admissions supervisor in 3 to 4 weeks. Discussion and discharge planning more than 35 minutes. MMODL / IJN: [id number] /
== END 2018-04-28 18:00 | DRG 178 ==
LOC: EC 12:14 → 6SEL 14:35 → 5MS5E 04-27 22:22
PROVIDERS: ADMIT Hospitalist; ATTEND Hospitalist
DX: J15.6 Pneumonia due to other Gram-negative bacteria (principal); I13.0 Hypertensive heart and chronic kidney disease with heart failure and stage 1 through stage 4 chronic kidney disease, or unspecified chronic kidney disease; I50.32 Chronic diastolic (congestive) heart failure; J98.11 Atelectasis; M62.82 Rhabdomyolysis; N17.9 Acute kidney failure, unspecified; I24.8 Other forms of acute ischemic heart disease; E78.00 Pure hypercholesterolemia, unspecified; E78.5 Hyperlipidemia, unspecified; H50.9 Unspecified strabismus; I25.10 Atherosclerotic heart disease of native coronary artery without angina pectoris; I45.10 Unspecified right bundle-branch block; M19.91 Primary osteoarthritis, unspecified site; N18.9 Chronic kidney disease, unspecified; N40.0 Benign prostatic hyperplasia without lower urinary tract symptoms; Z79.82 Long term (current) use of aspirin; Z79.899 Other long term (current) drug therapy; Z82.49 Family history of ischemic heart disease and other diseases of the circulatory system; Z95.5 Presence of coronary angioplasty implant and graft; Z88.0 Allergy status to penicillin; Z88.7 Allergy status to serum and vaccine; Z88.8 Allergy status to other drugs, medicaments and biological substances
CPT/HCPCS: 36415; 71046; 80048; 80053; 80061; 82550; 82553; 83735; 83880; 84484; 85025; 85610; 85730; 87070; 87205; 93005; 93306; 99285